=== PATIENT | male | born 1950 | race Caucasian/White ===

== ENCOUNTER 2018-11-07 13:05 | Inpatient (IN) | payer OTHER ==
[2018-11-07 13:43] LABS: Base Excess-Venous -3.8 mmol/L (-2.0 to 3.0); Bicarbonate (HCO3v) 16.4 mmol/L (22.0-28.0); CO2 Tension (PvCO2) 20.6 mmHg (40.0-50.0); Calcium, Ionized 1.05 mmol/L (See Comments:); Chloride 102 mmol/L (98-107); Hemoglobin - Calc 16.1 g/dL (14.0-18.0); Potassium 3.3 mmol/L (3.5-5.1); Sodium 129 mmol/L (138-145); T. Carbon Dioxide 17.1 mmol/L (22.0-28.0); vO2 Saturation-calc 59.3 % (60.0-85.0)
[2018-11-07 13:48] LABS: Band 6 % (5-11); Hemoglobin 15.9 g/dL (14.0-18.0); Lymphocytes 10 % (21-51); MDiff Complete? YES; Mean Corpuscular HGB CONC 34.4 g/dL (32.0-36.0); Mean Corpuscular Hemoglobin 32.3 pg (27.0-31.0); Mean Platelet Volume 9.9 fL (7.4-10.4); Monocytes 12 % (0-10); Neutrophil 69 % (42-75); Platelet Count 230 thou/uL (130-400); Platelet Morphology Comment Appears Adequate; RBC Distribution Width 12.2 % (11.5-14.5); Reactive Lymphocytes 3 % (0-10); Red Blood Cell (RBC) Count 4.93 mill/uL (4.70-6.10); Toxic Granulation SLIGHT; Vacuoles SLIGHT; White Blood Cell (WBC) Count 13.4 thou/uL (4.8-10.8)
[2018-11-07 13:51] LABS: ALT (SGPT) 21 U/L (8-55); AST (SGOT) 18 U/L (5-34); Albumin 4.9 g/dL (3.4-4.8); Alkaline Phosphatase 91 U/L (40-150); Anion Gap 19 mmol/L (10-20); BUN (Urea Nitrogen) 11 mg/dL (8.4-25.7); Bilirubin, Total 1.2 mg/dL (0.2-1.2); Calc. Creatinine Clearance 0 mL/min (70-130); Calcium 11.4 mg/dL (7.8-10.44); Carbon Dioxide 19 mmol/L (23-31); Chloride 97 mmol/L (98-107); Estimated GFR-MDRD 52; Globulin 4.3 g/dL (2.4-3.5); Glucose 102 mg/dL (80-115); Lipase 24 U/L (8-78); Potassium 3.6 mmol/L (3.5-5.1); Protein, Total 9.2 g/dL (5.8-8.1); Sodium 131 mmol/L (136-145)
--- NOTE | 2018-11-07 14:42 | RAD ---
RADIOGRAPH CHEST 1 VIEW: DATE: 11/07/2018 HISTORY: 68-year-old male with chest pain FINDINGS: There is no airspace density, pulmonary edema, or pneumothorax. The lateral costophrenic angles are n ot effaced. There is a retrocardiac medial left basilar mass. IMPRESSION: 1. No acute pulmonary findings. 2. Small to moderate size hiatal hernia.
[2018-11-07 14:49] LABS: Bilirubin Negative (Negative); Blood, Urine Negative (Negative); Clarity Clear (Clear); Glucose, Urine (Dipstick) Negative (Negative); Leukocyte Negative (Negative); Nitrite Negative (Negative); Protein, Urine (Dipstick) Negative (Neg-Trace); Specific Gravity, Urine 1.015 (1.005-1.030); Urobilinogen 0.2 mg/dL (0.2-1.0)
--- NOTE | 2018-11-07 14:58 | CT ---
CT angiogram thorax with contrast: (CTA pulmonary angiogram) HISTORY: 68-year-old male with elevated d-dimer and chest pain. TECHNIQUE: IV injection of iodinated contrast. Scan acquisition timing attempted to coincide with iodinated contrast bolus reaching maximal density in pulmonary arteries. 3-D MIP reconstructions. FINDINGS: Unfortunately, according to the radiologic technologist mammogram, "30 mL IV contrast administered and exam stopped due to patient screaming about his IV site. No infiltration but IV site leaking. Proceeded with exam." Therefore, there is dilute contrast in the pulmonic trunk and the left and right main pulmonary arter ies, but there is insufficient contrast material in any of the proximal and distal branches of the pulmonary arteries to evaluate for pulmonary thromboembolism. There is contrast opacification of the thoracic aorta which is normal in caliber and tortuous, but no t aneurysmal, and with no dissection. Approximately third to half of the stomach has herniated into the posterior inferior mediastinum. No mediastinal or significant hilar lymphadenopathy. No cardiomegaly or pericardial effusion. No pleu ral effusion or pneumothorax. Nonspecific mild lacelike pulmonary density at anterior segment of left upper lobe. No consolidation or pulmonary edema. IMPRESSION: 1) no saddle embolus. 2) otherwise, nondiagnostic for pulmonary thromboembolism for reasons given above. 3) moderate to large hiatal hernia.
--- NOTE | 2018-11-07 15:00 | CT ---
CT Abdomen Pelvis W Con: 11/07/2018 1:22 PM CLINICAL INFORMATION: Abdominal pain just below the belly button COMPARISON: None. TECHNIQUE: Multiple contiguous axial images were obtained and a CT of the abdomen and pelvis with IV contrast. Oral contrast was administered. Coronal reformats were performed. FINDINGS: Lower Chest: Please see dedicated chest CT for findings above the diaphragm. Abdomen: Liver: within normal limits. Bile Ducts: Normal caliber. Gallbladder: No calcified gallstones. Normal caliber wall. Pancreas: within normal limits. Spleen: within normal limits. Adrenals: within normal limits. Kidneys: within normal limits. Pelvis: Reproductive Organs: No pelvic masses. Ureters: within normal limits. Bladder: within normal limits. Peritoneum: No free fluid or fluid collection is seen. Bowel: Scattered diverticula are seen in the colon. Stranding changes seen surrounding diverticula in the sigmoid colon consistent with acute diverticulitis. There are few foci of free air in the sigmoid mesentery. Normal appendix. Normal caliber small bowel. Mesentery and Retroperitoneum: No enlarged mesenteric or retroperitoneal lymph nodes. Vessels: Atherosclerotic calcifications. Abdominal Wall: within normal limits. Bones: Degenerative changes in the spine. IMPRESSION: Acute diverticulitis
[2018-11-07] MEDS ORDERED: Fentanyl 100 MCG/2 ML VIAL ONE (15:18)
[2018-11-07] MEDS ORDERED: Ondansetron PF 4 MG/2 ML Vial ONE (15:18)
[2018-11-07] MEDS ORDERED: Piperacillin/Tazobactam 4.5 GM VIAL ONE (15:18)
[2018-11-07] MEDS ORDERED: Ondansetron ODT 4 MG TAB SL PRN (17:40)
[2018-11-07] MEDS ORDERED: Sodium Chloride 0.9% 1,000 ML IV SCH (17:40)
[2018-11-07] MEDS ORDERED: Ondansetron PF 4 MG/2 ML Vial IVP PRN ×2 (17:40→20:51)
[2018-11-07] MEDS ORDERED: Fentanyl 100 MCG/2 ML VIAL SLOW IVP PRN (17:42)
[2018-11-07 17:45] VITALS: BMI 26.6
[2018-11-07] MEDS ORDERED: Ondansetron ODT 4 MG TAB PO PRN (20:51)
[2018-11-07] MEDS ORDERED: hydrALAZINE 20 MG/ML VIAL SLOW IVP PRN (20:51)
[2018-11-07] MEDS ORDERED: Morphine 4 MG/ML VIAL SLOW IVP PRN (20:53)
[2018-11-07] MEDS ORDERED: Acetaminophen 1,000 MG in Premix Bag 1 BAG IVPB PRN (20:53)
[2018-11-07] MEDS ORDERED: Ketorolac Tromethamine 60 MG/2 ML VIAL IVP PRN (20:53)
[2018-11-07] MEDS ORDERED: Enoxaparin Sodium 40 MG/0.4 ML SYRINGE SC SCH (21:00)
[2018-11-07] MEDS ORDERED: Sodium Chloride 0.9% (PF) 10 ML VIAL FS PRN (21:09)
[2018-11-07] MEDS: Potassium Chloride 30 MEQ in Sodium Chloride 0.9% 1,000 ML IV SCH (21:34)
[2018-11-07] MEDS: Piperacillin/Tazobactam 4.5 GM in Sodium Chloride 0.9% 100 ML IVPB SCH (21:35)
[2018-11-07] MEDS ORDERED: Piperacillin/Tazobactam 4.5 GM in Sodium Chloride 0.9% 100 ML IVPB SCH (22:00)
--- NOTE | 2018-11-08 01:25 | HP ---
HISTORY OF PRESENT ILLNESS: A 68-year-old male patient presented emergency room, evaluated for abdominal pain ongoing since Sunday, today is . The pain is in his lower abdomen and left lower quadrant. He has not had fever or nausea or vomiting. He has never had diverticulitis before [address] Ariel Valle performed a colonoscopy. The patient's pain was so intense and he presented to the emergency room. He was noted there to have tenderness in his left lower quadrant and white count of 13 and hemoglobin of 15. Sodium 131, potassium 3.3, BUN and creatinine are normal. The patient is admitted for intravenous antibiotics. The patient had called Dr. Valle's office earlier today and he suggested he go to the emergency room. ALLERGIES: NONE. TOBACCO: None. ALCOHOL: Rarely. MEDICATIONS: None routinely. PAST SURGICAL HISTORY: Noncontributory. PAST MEDICAL HISTORY: Noncontributory. He had an EGD and a colonoscopy in the last 3 years. REVIEW OF SYSTEMS: Noncontributory. PHYSICAL EXAMINATION: VITAL SIGNS: Height 6 feet tall, weight 196 pounds and 26 BMI, temperature 99 degrees, pulse 84, blood pressure 133/75. HEAD, EARS, EYES, NOSE AND THROAT: Unremarkable. LUNGS: Clear to auscultation. CARDIAC: Regular rate and rhythm without murmur or gallop. ABDOMEN: Soft. Tenderness in his left lower quadrant, suprapubic with guarding. EXTREMITIES: Unremarkable. ASSESSMENT AND PLAN: Diverticulitis. CAT scan confirms this. We will treat with intravenous antibiotics and bowel rest and IV fluids. We will replace his potassium. We will make further recommendations pending clinical course. Expect him to go home in the next 24-72 hours. Job ID: [id number]
[2018-11-08] MEDS: Piperacillin/Tazobactam 4.5 GM in Sodium Chloride 0.9% 100 ML IVPB SCH ×2 (04:18→09:54)
[2018-11-08 05:38] LABS: #Eosinphils 0.2 thou/uL (0.0-0.7); #Lymphocytes 1.4 thou/uL (1.20-3.40); #Neutrophils 6.2 thou/uL (1.40-6.50); %Basophils 0.3 % (0.0-1.0); %Eosinophils 2.1 % (0.0-10.0); %Monocytes 11.7 % (0.0-10.0); Anion Gap 12 mmol/L (10-20); BUN (Urea Nitrogen) 14 mg/dL (8.4-25.7); Calc. Creatinine Clearance 69 mL/min (70-130); Calcium 8.9 mg/dL (7.8-10.44); Carbon Dioxide 21 mmol/L (23-31); Chloride 105 mmol/L (98-107); Estimated GFR-MDRD 55; Glucose 85 mg/dL (80-115); Hemoglobin 12.6 g/dL (14.0-18.0); Mean Corpuscular Hemoglobin 33.5 pg (27.0-31.0); Mean Corpuscular Volume 98.5 fL (78.0-98.0); Mean Platelet Volume 8.6 fL (7.4-10.4); Platelet Count 192 thou/uL (130-400); Potassium 3.8 mmol/L (3.5-5.1); RBC Distribution Width 12.2 % (11.5-14.5); Red Blood Cell (RBC) Count 3.78 mill/uL (4.70-6.10); Sodium 134 mmol/L (136-145); White Blood Cell (WBC) Count 8.9 thou/uL (4.8-10.8)
[2018-11-08] MEDS: Potassium Chloride 30 MEQ in Sodium Chloride 0.9% 1,000 ML IV SCH (06:15)
[2018-11-08] MEDS ORDERED: Pantoprazole 40 MG VIAL IVP SCH (09:00)
[2018-11-08 11:57] VITALS: BP 109/65; TEMP 98.7
--- NOTE | 2018-11-08 12:46 | PRG ---
DATE OF SERVICE: 11/08/2018 SUBJECTIVE: Mr. Weller is doing well today. He is pain free. He is tolerating his full liquids. The patient wants to go home. Plan is to discharge home on Augmentin 875 p.o. b.i.d. for a week. He should be on a low-fiber diet for 2 weeks, transition to high-fiber after that. He should follow up with me in 2 to 3 weeks as needed and follow up with Dr. Valle as needed. OBJECTIVE: LUNGS: Clear to auscultation. CARDIAC: Regular rate and rhythm without murmur or gallop. ABDOMEN: Soft and nontender. Minimal tenderness in left lower quadrant. No guarding. ASSESSMENT: Resolving diverticulitis. PLAN: Home on oral antibiotics for 7 days, low-fiber diet for 2 weeks, transition to high-fiber after that. Job ID: [id number]
[2018-11-08] MEDS ORDERED: Amoxicillin/Potassium Clav 875 MG TAB PO SCH (21:00)
--- NOTE | 2018-11-08 22:33 | DIS ---
DATE OF ADMISSION: 11/07/2018 DATE OF DISCHARGE: 11/08/2018 DISCHARGE DIAGNOSIS: Diverticulitis. DISCHARGE MEDICATIONS: Augmentin 875 p.o. b.i.d. for 7 days, low-fiber diet for 2 weeks, transition to high-fiber as tolerated. Advance diet to low fiber soft diet as pain resolves. HISTORY: A 68-year-old male seen by Dr. Valle, status post colonoscopy in the last 2 years. He had acute onset first episode left lower quadrant and had severe pain for 2 to 3 days, presented to the emergency room. CAT scan confirmed changes of diverticulitis with focus of extraluminal air. He was admitted, treated with intravenous antibiotics, bowel rest and then tolerated full liquids, had a bowel movement, and was discharged home on Augmentin 875 p.o. b.i.d. for 7 days and low-fiber diet for 2 weeks and transitioned to high-fiber diet after that. Job ID: [id number]
== END 2018-11-08 13:45 | disposition home or self-care (01) | DRG 392 ==
LOC: SCSER 13:05 → T4-A 15:24
PROVIDERS: ADMIT Specialist; ATTEND Specialist
DX: K57.32 Diverticulitis of large intestine without perforation or abscess without bleeding (principal); K21.9 Gastro-esophageal reflux disease without esophagitis; Z88.8 Allergy status to other drugs, medicaments and biological substances
CPT/HCPCS: 36415; 36416; 71045; 71275; 74177; 80048; 80053; 81003; 82330; 82803; 83605; 83690; 84484; 85025; 93005; 96365; 96375; C9113; J1650; J1885; J2405; J2543; J3010; J3480; J3490; J7050